=== PATIENT | male | born 1960 | race Caucasian/White ===

== ENCOUNTER 2024-04-08 22:45 | Emergency (ER) | payer OTHER, SELFPAY ==
[2024-04-08 22:48] VITALS: BP 169/97
--- NOTE | 2024-04-08 23:01 | ED.GENMED ---
History of Present Illness
<GUALBERTO Howard - Last Filed: 04/08/24 23:10>
General
Chief Complaint: Esophageal Problem
Source: patient
Time Seen by Provider: 04/08/24 22:54
Nursing documentation reviewed up to this point in time: agreed with
History of Present Illness
History of Present Illness:
Pt is a 63 yo M who presents to the emergency department with esophageal pain and inability to swallow. Pt states that he was eating pork around 7pm and felt a piece got stuck in his esophagus and won't go down. He states that he can not swallow
liquids or his salvia. He reports that the area where the food is stuck is becoming painful. Pt states that this has happened previously, but it passed and he was able to get the stuck food to move down. On exam patient is spitting his saliva into a
cup and reports that he can not swallow the saliva. He denies nausea or vomiting.
Review of Systems
<GUALBERTO Howard - Last Filed: 04/08/24 23:10>
Review of Systems
Allergies reviewed?: Yes
Constitutional: Reports no symptoms
Respiratory: Reports no symptoms
Cardiac: Reports no symptoms
ABD/GI: Reports pain (esophageal pain and unable to swallow saliva)
Skin: Reports no symptoms
Neurological: Reports no symptoms
Phy Exam
<GUALBERTO Howard - Last Filed: 04/08/24 23:10>
General Physical Exam
General Presentation: moderate distress
General age: appears stated age
General Skin: warm
General Habitus: normal
General Mental: alert
General Hydration: appears well hydrated
Cardiovascular Exam
Cardiovascular Exam: regular rate/rhythm
Pulmonary Exam
Pulmonary Exam: lungs clear and no respiratory distress
Gastrointestinal Exam
Gastrointestinal Exam: other (esophageal pain and spitting saliva into cup on exam, unable to swallow liquids or saliva )
Course
<ST LeePA - Last Filed: 04/08/24 23:10>
Orders/Labs/Results
Orders:
Orders
04/08/24 23:02
Glucagon [GlucaGen] 1 mg IM NOW STA
04/08/24 23:51
Glucagon [GlucaGen] 1 mg IM NOW STA
Vital Signs
Initial and Last Documented VS:
Initial Vital Signs
Temp Pulse Resp BP Pulse Ox
98.7 F 69 16 169/97 100
04/08/24 22:48 04/08/24 22:48 04/08/24 22:48 04/08/24 22:48 04/08/24 22:48
Last Documented Vital Signs
Temp Pulse Resp BP Pulse Ox
98.7 F 69 16 169/97 100
04/08/24 22:48 04/08/24 22:48 04/08/24 22:48 04/08/24 22:48 04/08/24 22:48
<Ike Ac, - Last Filed: 04/09/24 00:15>
Orders/Labs/Results
Orders:
Orders
04/08/24 23:02
Glucagon [GlucaGen] 1 mg IM NOW STA
04/08/24 23:51
Glucagon [GlucaGen] 1 mg IM NOW STA
Vital Signs
Initial and Last Documented VS:
Initial Vital Signs
Temp Pulse Resp BP Pulse Ox
98.7 F 69 16 169/97 100
04/08/24 22:48 04/08/24 22:48 04/08/24 22:48 04/08/24 22:48 04/08/24 22:48
Last Documented Vital Signs
Temp Pulse Resp BP Pulse Ox
98.7 F 69 16 169/97 100
04/08/24 22:48 04/08/24 22:48 04/08/24 22:48 04/08/24 22:48 04/08/24 22:48
<GUALBERTO Howard - Last Filed: 04/08/24 23:10>
MDM/Problems Addressed
Differential Diagnosis Includes:
Esophageal foreign body, esophagitis
<GUALBERTO Howard - Last Filed: 04/08/24 23:10>
*Critical Care Note
Total Time (30-74mins, 75-104mins- exclusive of procedures): Not Applicable
<Ike Ac DO - Last Filed: 04/09/24 00:15>
Update Note
Update Note:
04/08/2024 2351 PM: First dose of glucagon was unsuccessful. Patient still has a foreign body sensation. Second dose ordered
04/09/2024 0014 AM: Shortly after the second dose of glucagon given, patient was able to expel the foreign body. He is now tolerating secretions with no issues. He states that he felt the pork get dislodged. No respiratory distress.
ED Attending Note
<GUALBERTO Howard - Last Filed: 04/08/24 23:10>
-
Portions of this chart may have been created with voice recognition software.� Occasional wrong word or��sound alike� substitutions may have occurred due to the inherent limitations of voice recognition software.
<Ike Ac DO - Last Filed: 04/09/24 00:15>
ED Attending Note
Patient seen and examined by attending physician: Yes
ED Attending Note:
Pleasant 63-year-old male presents with possible esophageal foreign body. Patient was eating pork tonight and feels a piece of pork lodged in his throat. He states he has had an esophageal foreign bodies in the past that have passed spontaneously.
This 1 is lasting longer than normal. Patient reports trouble tolerating secretions. Patient is having difficulty swallowing. Patient was seen in conjunction with the PA student. I have reviewed and agree with the history and treatment plan
presented. On my independent physical exam, patient is awake, alert, and oriented x3 moderate acute distress pacing around the room and spitting into a cup. No respiratory distress. I spoke with gastroenterology who recommended 2 doses of
glucagon 30 minutes apart. First dose administered.
Discharge Plan
Departure
Patient Disposition: Home (Routine Discharge)
Date of Disposition: 04/09/24
Time of Disposition: 00:14
Patient with high blood pressure during this ER visit?: Yes
Condition: Good
Discharge Problem:
Esophageal foreign body
Instructions: Food Obstruction, BLOOD PRESSURE
Referrals:
Michael Borja MD [Family Provider] -
Activity Restrictions/Additional Instructions:
It was a pleasure meeting you and taking part in your care. We hope for your continued healing and wellness.
Please read discharge instructions in their entirety. However, they are for general education and may not describe your exact diagnosis at discharge. Information on your ER visit and medical conditions were discussed with you along with appropriate
follow up information...
If indicated, please take your medications as instructed and indicated on discharge paperwork.
Please schedule a follow up appointment as directed. Call to schedule an appointment
Please return to the emergency department with ANY change in, persisting, or worsening of symptoms. If any of your symptoms do not improve, or persist, or become more severe within 6-12 hours, please return to the emergency department for further
care.
Please return to the emergency department if you develop a headache, neck pain/stiffness, fever greater than 100.4F, chest pain, shortness of breath, persistent nausea, vomiting, slurred speech, difficulty walking, numbness/tingling, weakness, signs
of infection or any other symptoms that are worrisome to you.
If you have any questions or concerns please do not hesitate to call the Hospital at or E-mail me directly at [email or web address]
Interventions
Interventions:
*Risk Screen - Suicide Last Done: 04/08/24 22:48
*General Assessment Last Done: 04/08/24 22:48
*Neglect/Abuse Screening Last Done: 04/08/24 22:48
ED- Fall Risk Assessment Last Done: 04/09/24 00:07
*ED COVID-19 Vaccine History Last Done: 04/08/24 22:48
AH-Kllntp-Rtkwlejvpg Assessment Last Done: 04/09/24 00:07
ED-EENT Assessment Last Done: 04/09/24 00:07
Discharge Date and Time
Print Language: PAP[place]
[2024-04-08] MEDS: GlucaGen 1 MG IM ×2 (23:10→23:54)
== END 2024-04-09 00:24 | disposition home or self-care (01) ==
LOC: EMR 22:45
PROVIDERS: EMERGENCY PHYSICIAN Student in an Organized Health Care Education/Training Program; FAMILY PHYSICIAN Family Medicine
DX: T18.108A Unspecified foreign body in esophagus causing other injury, initial encounter (principal); W44.9XXA Unspecified foreign body entering into or through a natural orifice, initial encounter
CPT/HCPCS: 99284; 96372 ×2; J1610

== ENCOUNTER 2024-10-09 06:27 | Day surgery (SDC) | payer BC, SELFPAY | END 2024-10-09 11:28 | disposition home or self-care (01) | LOC: GI 06:27 | PROVIDERS: ATTENDING PHYSICIAN Specialist | DX: R13.10 Dysphagia, unspecified (principal); K22.89 Other specified disease of esophagus; K20.0 Eosinophilic esophagitis | CPT/HCPCS: 43239; 88305 ==